=== PATIENT | female | born 1965 | race Caucasian/White ===

== ENCOUNTER 2016-06-07 10:30 | Emergency (ER) | payer OTHER ==
[~2016-06-07 10:30] MED LIST: BUPROPION HCL150 M2 PO; CLONAZEPAM1 MG PO; INDERAL EQUIVAL20 MG PO; KLOR-CON 1010 MEQ PO; MAG-OXIDE400 MG PO; MAXZIDE-25 PO; METFORMIN HCL500 MG PO; NEURONTIN300 MG PO; PHENERGAN EQUIV25 MG PO; PRILOSEC40 MG PO; RANITIDINE HCL150 MG PO; SEROQUEL25 MG PO; VENLAFAXINE H37.5 M1 PO; VITAMIN D-31000 UNIT PO; ZOFRAN ODT4 MG PO
--- NOTE | 2016-06-07 11:59 | DIAGNOSTIC IMAGING REPORT ---
PROCEDURE: CT HEAD WITHOUT CONTRAST INDICATION: Altered mental status, initial encounter TECHNIQUE: Noncontrast axial images with sagittal and coronal reformations. COMPARISON: None. FINDINGS: Sulci, ventricular system, and brain parenchyma are normal. No evidence of acute intracranial process. Visualized mastoids and sinuses are clear. IMPRESSION: 1. Negative non-enhanced head CT. 2. Findings discussed with Dr. Sebastian at 11:57 a.m., [facility] Time
--- NOTE | 2016-06-07 12:26 | DIAGNOSTIC IMAGING REPORT ---
PROCEDURE: XR CHEST 1 VIEW INDICATION: CVA, initial encounter TECHNIQUE: Portable AP view 11:45 a.m. COMPARISON: Chest x-ray 01/15/2015 FINDINGS: Lungs are clear. Heart and mediastinum are normal. Thorax is normal. IMPRESSION: 1. Negative chest.
--- NOTE | 2016-06-07 17:01 | DIAGNOSTIC IMAGING REPORT ---
PROCEDURE: MR BRAIN WITHOUT CONTRAST INDICATION: WEAKNESS, initial encounter TECHNIQUE: Sagittal T1 FLAIR; coronal T2; axial T1 FLAIR, T2-weighted FLAIR, T2 FSE, gradient echo T2, DWI and ADC sequences. COMPARISON: Head CT 06/07/2016 FINDINGS: Normal sulci and ventricular system. Minor white matter chronic ischemic changes. There is no evidence of an acute CVA, hemorrhage, mass or midline shift. Normal vascular flow voids. Normal orbits. Mastoids and sinuses are clear. IMPRESSION: 1. Minor white matter chronic ischemic changes 2. Results discussed with Dr. Sebastian
--- NOTE | 2016-06-07 17:12 | ED NURSING NOTES ---
Clinical Report - Nurses [facility] [address] [place] [address] 06/07/2016 10:32 Patient: STIVEN FOSS TRIAGE Triage time 1035. Acuity: LEVEL 3. Chief Complaint: HEADACHE and WEAKNESS (weakness in the arms, lt worse., chest discomfort, back of head hurts, "feel like hit in head"). Alert. No acute distress. SEPSIS SCREEN: Sepsis Screen: negative. Negative (no infection suspected/documented). TACHO COMA SCORE: [place] Coma Scale: 15- eyes open spontaneously (4); best verbal response- oriented x 4 (5); best motor response- obeys commands (6). --11:02 Fariha Solano R.N. 10:41 06/07/16. BP: 125/81. HR: 100. RR: 16. O2 saturation: 100%. Temp: 97.8 F. Pain level now: 7/10. Additional comments: "Everything feels wierd in my body. " "[place] like someone hit me in the head" . --11:02 Fariha Solano R.N. 10:41 06/07/16. BP: 125/81. HR: 100. RR: 16. O2 saturation: 100%. Temp: 97.8 F. Pain level now: 7/10. Additional comments: "Everything feels wierd in my body. " "[place] like someone hit me in the head" . --11:02 Fariha Solano R.N. Weight: 83.9 kg stated. Height/Length: 63 inches Per Patient. BMI: 32.8. --10:48 Fariha Solano R.N. Medications ClonazePAM Oral 2 mg, 4x a day. Gabapentin Oral (Tablet 600 mg) 1 tablet, 3x a day. Magnesium Oral 400 mg, daily. MetFORMIN HCl Oral (Tablet 500 mg) 1 tablet, 2x a day. Omeprazole Oral 40 mg, daily. Promethazine HCl Oral (Tablet 25 mg) 1 tablet, as needed. QUEtiapine Fumarate Oral (Tablet 200 mg) 1 tablet, daily. Ranitidine HCl Oral 150 mg, 2x a day. Vitamin D Oral. Zofran Oral (Tablet 4 mg) 1 tablet, 4x a day as needed. --10:59 Fariha Solano R.N. Hydrochlorothiazide Oral 25 mg, daily. --12:50 Fariha Solano R.N. Cytrazine ?, depression.. --12:51 Fariha Solano R.N. Medication/allergy information source: the patient and patient's family. --11:02 Fariha Solano R.N. Allergies PCN. --11:01 Fariha Solano R.N. History Arrived by private vehicle. Historian: patient. This started yesterday. She has had weakness. No fever, cough or difficulty breathing. Treatment BUTTON SEWER HAND: None. PAST MEDICAL HX: Immunizations: status is unknown. The patient has had a hysterectomy. SOCIAL HX: Smoker- current status unknown (vape). Alcohol use; consumes a large amount of liquor weekly. FALL RISK ASSESSMENT: Fall risk assessment completed. No fall risk identified. NUTRITIONAL RISK ASSESSMENT: The nutritional risk assessment revealed no deficiencies. FUNCTIONAL ASSESSMENT: Functional assessment: no impairments noted. LEARNING NEEDS ASSESSMENT: The learning needs assessment revealed no barriers. SKIN INTEGRITY ASSESSMENT: Skin integrity risk assessment completed. No skin integrity risk identified. --11:02 Fariha Solano R.N. ( Bedside glucose 91mg/dl). --11:05 Fariha Solano R.N. PROBLEMS: Diabetes Mellitus. Respiratory Failure. Drug Poisoning. Suicide Attempt. Mental Illness. --10:48 Fariha Solano R.N. Alcoholism. --12:48 Fariha Solano R.N. ADDITIONAL SURGERIES: Bilateral Tubal Ligation. Bladder Suspension. Gallbladder Surgery. Gastric Resection. Hysterectomy. Rt tube removed, tubal preg. . Sinus Surgery. --10:48 Fariha Solano R.N. Anus lift, due to prolapse. --12:48 Fariha Solano R.N. The following entry was struck by Fariha Solano R.N., 13:24 Reason - other <<STRICKEN ENTRY-- Tetralogy of Fallot Repair. --10:47 Fariha Solano R.N. --END STRIKE>>. Interventions ID band on patient. To room. --11:02 Fariha Solano R.N. PHYSICAL ASSESSMENT Ambulatory to room. Patient gowned. GENERAL / NEURO / PSYCH: Alert. Oriented X 4. Appears in no acute distress. Appears anxious. HEENT: Left-sided facial weakness. RESPIRATORY: Respirations not labored. CVS: Normal sinus rhythm noted. Capillary refill less than 2 seconds. GI / : Abdomen nontender. SKIN: Skin intact. Skin is warm and dry. Normal skin turgor. --11:03 Fariha Solano R.N. NURSING PROGRESS NOTES networking technician, pulse oximeter and NIBP monitor placed on patient; bar supervisor- Lead II; monitor alarms on. Patient gowned. Head of bed elevated. Two patient identifiers checked. Call light placed in reach. Side rails up x 2. Bed placed in lowest position. Brakes of bed on. Patient ready for evaluation. --11:04 Fariha Solano R.N. Spouse at bedside. --11:05 Fariha Solano R.N. 10:55. Finger stick glucose: 91 mg/dL. --11:05 Fariha Solano R.N. 10:55 06/07/2016 Site #1 started via IV in the right wrist with an 22g angiocath; one attempt. Blood drawn: rainbow set. Labeled in the presence of the patient and sent to the lab. Saline lock flushed with 10 mL saline. --11:06 Fariha Solano R.N. EKG time: (10:50 AM). EKG was performed by a tech and shown to the ED physician. --11:17 Oleksandr Savage ( Ambulated to and from the bathroom, voided w/o difficulty. Needed only standby assistance,). --11:19 Fariha Solano R.N. 13:43 06/07/16. BP: 92/65. HR: 81. RR: 14. O2 saturation: 98% on room air. 12:11 06/07/16. BP: 99/65. HR: 87. RR: 16. O2 saturation: 97% on room air. --13:44 Fariha Solano R.N. 14:46 06/07/2016 Tylenol (Acetaminophen) PO 975 mg given. Allergies verified and confirmed 5 rights. --14:46 Fariha Solano R.N. 15:07 06/07/16. BP: 107/62. HR: 72. RR: 16. O2 saturation: 96% on room air. --15:08 Fariha Solano R.N. ( Pt taken to MRI by the director intelligence analysis programs). --15:42 Temitope Loo Patient returned from MRI by stretcher with tech. --16:00 Fariha Solano R.N. Patient returned from MRI by wheelchair with tech. ([id number]). --16:34 Fariha Solano R.N. DISPOSITION / DISCHARGE No learning barriers present. Patient verbalized understanding. Written instructions provided in Hungarian. The patient was discharged home and accompanied by spouse. She left the Emergency Department ambulatory and via private vehicle. Spouse driving. Medication list reviewed and validated. --17:39 Fariha Solano R.N. 17:37 06/07/16. BP: 117/69. HR: 87. RR: 16. O2 saturation: 98% on room air. Temp: deferred. 15:07 06/07/16. BP: 107/62. HR: 72. RR: 16. O2 saturation: 96% on room air. 13:43 06/07/16. BP: 92/65. HR: 81. RR: 14. O2 saturation: 98% on room air. 12:11 06/07/16. BP: 99/65. HR: 87. RR: 16. O2 saturation: 97% on room air. 10:41 06/07/16. BP: 125/81. HR: 100. RR: 16. O2 saturation: 100%. Temp: 97.8 F. Pain level now: 12/01. Additional comments: "Everything feels wierd in my body. " "[place] like someone hit me in the head" . --17:39 Fariha Solano R.N. Locked/Released at 06/13/2016 15:10 by Blanca Jacobs R.N.
--- NOTE | 2016-06-07 17:12 | ED CLINICAL REPORT ---
Clinical Report - Physicians/Mid Levels [facility] [address] [place] [address] 06/07/2016 10:32 Patient: STIVEN FOSS Time Seen: 10:54. Arrived- By private vehicle. Historian- patient. HISTORY OF PRESENT ILLNESS Chief Complaint: WEAKNESS and PARESTHESIA. The patient has had new onset of weakness of the right leg (mild), left arm, left hand (moderate) and left leg (mild). She has had new onset of numbness of the left arm (mild) and left hand (mild). She has had new onset of tingling of the left hand. She has had mild difficulty with speech ("a little slower" - according to her partner). She has had visual disturbance with blurred vision of the right and left eye (mild). No impaired swallowing or recent fall. No difficulty walking. This started yesterday at about 4 PM and is still present. It was abrupt in onset and has been constant. At its maximum deficit described as mild. When seen in the E.D., deficit described as mild. The patient has had mild dizziness. Usually is alert and oriented X3 and has normal mobility. Similar symptoms previously: Once. Diagnosis: TIA. ( She was seen at [facility]). REVIEW OF SYSTEMS The patient has had a headache (since earlier this morning on the top of her head). No chills, fever, sweats, calf pain or chest pain. No cough, difficulty breathing, pedal edema, palpitations or abdominal pain. No constipation, diarrhea, nausea, vomiting or urinary problems. All systems otherwise negative, except as recorded above. PAST HISTORY ( PCP - ORA LUNA). Medications: Cytrazine ?, depression.. Hydrochlorothiazide Oral 25 mg, daily. ClonazePAM Oral 2 mg, 4x a day. Gabapentin Oral (Tablet 600 mg) 1 tablet, 3x a day. Magnesium Oral 400 mg, daily. MetFORMIN HCl Oral (Tablet 500 mg) 1 tablet, 2x a day. Omeprazole Oral 40 mg, daily. Promethazine HCl Oral (Tablet 25 mg) 1 tablet, as needed. QUEtiapine Fumarate Oral (Tablet 200 mg) 1 tablet, daily. Ranitidine HCl Oral 150 mg, 2x a day. Vitamin D Oral. Zofran Oral (Tablet 4 mg) 1 tablet, 4x a day as needed. Allergies: PCN. SOCIAL HISTORY Smoker- current status unknown (vape pen). Heavy alcohol use. FAMILY HISTORY Denies family medical history. ADDITIONAL NOTES The nursing notes have been reviewed. PHYSICAL EXAM Vital Signs: 06/07/2016 10:41 BP: 125/81. HR: 100. RR: 16. O2 saturation: 100%. Temp: 97.8 F. Pain level now: 12/01. Have been reviewed. Appearance: Alert. Head: Head atraumatic. Eyes: Pupils equal, round and reactive to light. No nystagmus. ENT: Pharynx normal. Neck: Normal inspection. Neck supple. No meningeal signs or carotid bruit. CVS: Normal heart rate and rhythm. Heart sounds normal. Respiratory: No respiratory distress. Breath sounds normal. Abdomen: Soft and nontender. No organomegaly. Back: Normal inspection. Skin: Skin warm and dry. Normal skin color. Normal skin turgor. Extremities: Extremities exhibit normal ROM. No lower extremity edema. Neuro: Alert. Oriented X 3. Cranial nerve deficit present, as evidenced by a left facial droop (very mild). No cerebellar findings. Reflexes normal. Left sided pronator drift (slight). LABS, X-RAYS, AND EKG EKG: Rate: 88. Decreased QRS voltage. EKG unchanged when compared with prior EKG. (no significant changes noted from 14 January 2015). The study has been independently viewed by me. CT Head: No acute changes. The study was interpreted contemporaneously by me and discussed with the radiologist. MRI Brain: Note- PROCEDURE: MR BRAIN WITHOUT CONTRAST INDICATION: WEAKNESS, initial encounter TECHNIQUE: Sagittal T1 FLAIR; coronal T2; axial T1 FLAIR, T2-weighted FLAIR, T2 FSE, gradient echo T2, DWI and ADC sequences. COMPARISON: Head CT 06/07/2016 FINDINGS: Normal sulci and ventricular system. Minor white matter chronic ischemic changes. There is no evidence of an acute CVA, hemorrhage, mass or midline shift. Normal vascular flow voids. Normal orbits. Mastoids and sinuses are clear. IMPRESSION: 1. Minor white matter chronic ischemic changes. Study type: The study was interpreted contemporaneously by me and discussed with the radiologist. Laboratory Tests: UA-Culture if indicated: (KAVIN: 06/07/2016 10:50) ( Mscvd 06/07/2016 11:52) Final results Test Result Flag Units (Reference) URINE COLOR YELLOW URINE APPEARANCE CLEAR URINE GLUCOSE NEGATIVE (NEGATIVE) URINE BILIRUBIN NEGATIVE (NEGATIVE) URINE KETONE NEGATIVE (NEGATIVE) URINE SPECIFIC GRAVITY <= 1.005 L (1.010-1.030) URINE PH 5.5 (5.0-8.0) URINE PROTEIN NEGATIVE (NEGATIVE) URINE UROBILINOGEN 0.2 EU/dL (0.2-1.0) URINE NITRITE NEGATIVE (NEGATIVE) URINE BLOOD NEGATIVE (NEGATIVE) URINE LEUK ESTERASE NEGATIVE (NEGATIVE) URINE RBC NONE SEEN rbc/hpf (0-1) URINE WBC NONE SEEN wbc/hpf (0-1) URINE EPITHELIAL CELLS 1-3 EPI/hpf (0-5) URINE BACTERIA NONE SEEN (NONE SEEN) URINE COMMENT CULT NOT INDICATED URINE CULTURES ARE SET-UP BASED ON THE FOLLOWING CRITERIA:POSITIVE NITRITEPOSITIVE LEUKOCYTE ESTERASEGREATER THAN 10 WHITE BLOOD CELLSMODERATE (2+) OR GREATER BACTERIA CBC w Diff: (KAVIN: 06/07/2016 10:50) ( Mscvd 06/07/2016 11:39) Final results Test Result Flag Units (Reference) WHITE BLOOD COUNT 6.2 K/uL (4.5-11.5) RED BLOOD COUNT 4.44 M/uL (4.00-5.20) HEMOGLOBIN 13.0 gm/dL (12.0-16.0) HEMATOCRIT 39.2 % (36.0-46.0) MEAN CELL VOLUME 88 fL (80-100) MEAN CORPUSCULAR HGB 29 pg (26-34) MEAN CORPUSCULAR HGB CONC 33 g/dL (31-37) RED CELL DISTRIBUTION WIDTH 12.5 % (11.6-14.8) PLATELET COUNT 204 K/uL (150-400) NEUTROPHIL % 39.3 L % (50-75) LYMPH % 48.5 H % (25-40) MONO % 10.0 % (3-14) EOSINOPHIL % 1.4 % (0-4) BASOPHIL % 0.8 % (0-2) PT with INR: (KAVIN: 06/07/2016 10:50) ( MsgRcvd 06/07/2016 11:50) Final results Test Result Flag Units (Reference) INR 0.9 (0.8-1.2) Low Intensity Therapy: INR 1.5-2.0 PT range 18.5-23.1Mod.Intensity Therapy: INR 2.0-3.0 PT range 23.1-31.5High Intensity Therapy: INR 2.5-3.5 PT range 27.4-35.5High Intensity Therapy 2: INR 3.0-4.0 PT range 31.5-39.3 APTT 30 SECONDS (24-34) CMP: (KAVIN: 06/07/2016 10:50) ( MsgRcvd 06/07/2016 11:55) Final results Test Result Flag Units (Reference) GLUCOSE 94 mg/dL (70-110) BUN 22 H mg/dL (7-18) CREATININE 1.1 mg/dL (0.6-1.3) Estimated GFR 55.88 mL/min Estimated GFR- >60 mL/min Note: Persistent reduction over 3 months in eGFR<60 mL/min/1.73 m2 defines CKD. Patients with eGFR values>=60 mL/min/1.73 m2 may also have CKD if evidence ofpersistent proteinuria. Additional information may be foundat www.kidney.org. SODIUM 141 mmol/L (136-145) POTASSIUM 3.7 mmol/L (3.5-5.1) CHLORIDE 103 mmol/L (98-107) CARBON DIOXIDE 30 mmol/L (21-32) CALCIUM 9.0 mg/dL (8.5-10.1) TOTAL PROTEIN 7.2 g/dL (6.4-8.2) ALBUMIN 3.4 g/dL (3.3-5.0) BILIRUBIN, TOTAL 0.5 mg/dL (0.0-1.0) ALKALINE PHOSPHATASE 124 H U/L (46-116) AST (SGOT) 25 U/L (15-37) ALT (SGPT) 34 U/L (12-78) LIPASE 185 U/L (73-393) AMYLASE 52 U/L (25-115) CPK 62 U/L (24-260) TROPONIN I <0.05 ng/mL (0.00-1.5) TROPONIN REFERENCE RANGE:<0.1 NEGATIVE0.1-1.5 INDETERMINANT>1.5 POSITIVE . PROGRESS AND PROCEDURES Course of Care: Patient is stable. Symptoms better. Vital signs have been reviewed. Physical exam findings are improved. Alert. No acute distress. Breath sounds normal. No respiratory distress. Normal heart rate and rhythm. Heart sounds normal. Abdomen soft and nontender. Skin warm and dry. No weakness. Consult obtained from neurology. Haider Luna - we reviewed the patient's history and exam findings as well as the results of her studies. I also reviewed the results of her prior records from [facility] with him. He says that in spite of the prior MRI and echocardiogram studies that an MRI should be obtained. he also says that at the time of discharge that the patient should have close follow-up with neurology. Case discussed. Phone consult only. Patient/family counseled. Old medical records reviewed. (from [facility] including prior MRI and echocardiogram). Disposition: Discharged. Condition: stable. CLINICAL IMPRESSION Migraine headache with hemiplegia. INSTRUCTIONS No driving or operating machinery while taking medication. Warnings: Further evaluation is necessary. GENERAL WARNINGS: Return or contact your physician immediately if your condition worsens or changes unexpectedly, if not improving as expected, or if other problems arise. Your Current Medications: CONTINUE TAKING THE FOLLOWING MEDICATIONS: ClonazePAM Oral : 2 mg 4x a day. Cytrazine ?, depression.*. Gabapentin Oral : Tablet 600 mg, 1 tablet 3x a day. Hydrochlorothiazide Oral : 25 mg daily. Magnesium Oral : 400 mg daily. MetFORMIN HCl Oral : Tablet 500 mg, 1 tablet 2x a day. Omeprazole Oral : 40 mg daily. Promethazine HCl Oral : Tablet 25 mg, 1 tablet, prn. QUEtiapine Fumarate Oral : Tablet 200 mg, 1 tablet daily. Ranitidine HCl Oral : 150 mg 2x a day. Vitamin D Oral. Zofran Oral : Tablet 4 mg, 1 tablet 4x a day, prn. Follow-up: Follow up with your doctor Dr. Luna in three days. Call for an appointment. Follow up with a neurologist- as recommended by your primary care physician. Understanding of the discharge instructions verbalized by patient and family. (Electronically signed by Basil Sebastian MD 06/07/2016 19:32)
--- NOTE | 2016-06-07 17:12 | ED NURSING NOTES ---
Clinical Report - Nurses [facility] [address] [place] [address] 06/07/2016 10:32 Patient: STIVEN FOSS TRIAGE Triage time 1035. Acuity: LEVEL 3. Chief Complaint: HEADACHE and WEAKNESS (weakness in the arms, lt worse., chest discomfort, back of head hurts, "feel like hit in head"). Alert. No acute distress. SEPSIS SCREEN: Sepsis Screen: negative. Negative (no infection suspected/documented). TACHO COMA SCORE: [place] Coma Scale: 15- eyes open spontaneously (4); best verbal response- oriented x 4 (5); best motor response- obeys commands (6). --11:02 Fariha Solano R.N. 10:41 06/07/16. BP: 125/81. HR: 100. RR: 16. O2 saturation: 100%. Temp: 97.8 F. Pain level now: 7/10. Additional comments: "Everything feels wierd in my body. " "[place] like someone hit me in the head" . --11:02 Fariha Solano R.N. 10:41 06/07/16. BP: 125/81. HR: 100. RR: 16. O2 saturation: 100%. Temp: 97.8 F. Pain level now: 7/10. Additional comments: "Everything feels wierd in my body. " "[place] like someone hit me in the head" . --11:02 Fariha Solano R.N. Weight: 83.9 kg stated. Height/Length: 63 inches Per Patient. BMI: 32.8. --10:48 Fariha Solano R.N. Medications ClonazePAM Oral 2 mg, 4x a day. Gabapentin Oral (Tablet 600 mg) 1 tablet, 3x a day. Magnesium Oral 400 mg, daily. MetFORMIN HCl Oral (Tablet 500 mg) 1 tablet, 2x a day. Omeprazole Oral 40 mg, daily. Promethazine HCl Oral (Tablet 25 mg) 1 tablet, as needed. QUEtiapine Fumarate Oral (Tablet 200 mg) 1 tablet, daily. Ranitidine HCl Oral 150 mg, 2x a day. Vitamin D Oral. Zofran Oral (Tablet 4 mg) 1 tablet, 4x a day as needed. --10:59 Fariha Solano R.N. Hydrochlorothiazide Oral 25 mg, daily. --12:50 Fariha Solano R.N. Cytrazine ?, depression.. --12:51 Fariha Solano R.N. Medication/allergy information source: the patient and patient's family. --11:02 Fariha Solano R.N. Allergies PCN. --11:01 Fariha Solano R.N. History Arrived by private vehicle. Historian: patient. This started yesterday. She has had weakness. No fever, cough or difficulty breathing. Treatment STAIN MAKER: None. PAST MEDICAL HX: Immunizations: status is unknown. The patient has had a hysterectomy. SOCIAL HX: Smoker- current status unknown (vape). Alcohol use; consumes a large amount of liquor weekly. FALL RISK ASSESSMENT: Fall risk assessment completed. No fall risk identified. NUTRITIONAL RISK ASSESSMENT: The nutritional risk assessment revealed no deficiencies. FUNCTIONAL ASSESSMENT: Functional assessment: no impairments noted. LEARNING NEEDS ASSESSMENT: The learning needs assessment revealed no barriers. SKIN INTEGRITY ASSESSMENT: Skin integrity risk assessment completed. No skin integrity risk identified. --11:02 Fariha Solano R.N. ( Bedside glucose 91mg/dl). --11:05 Fariha Solano R.N. PROBLEMS: Diabetes Mellitus. Respiratory Failure. Drug Poisoning. Suicide Attempt. Mental Illness. --10:48 Fariha Solano R.N. Alcoholism. --12:48 Fariha Solano R.N. ADDITIONAL SURGERIES: Bilateral Tubal Ligation. Bladder Suspension. Gallbladder Surgery. Gastric Resection. Hysterectomy. Rt tube removed, tubal preg. . Sinus Surgery. --10:48 Fariha Solano R.N. Anus lift, due to prolapse. --12:48 Fariha Solano R.N. The following entry was struck by Fariha Solano R.N., 13:24 Reason - other <<STRICKEN ENTRY-- Tetralogy of Fallot Repair. --10:47 Fariha Solano R.N. --END STRIKE>>. Interventions ID band on patient. To room. --11:02 Fariha Solano R.N. PHYSICAL ASSESSMENT Ambulatory to room. Patient gowned. GENERAL / NEURO / PSYCH: Alert. Oriented X 4. Appears in no acute distress. Appears anxious. HEENT: Left-sided facial weakness. RESPIRATORY: Respirations not labored. CVS: Normal sinus rhythm noted. Capillary refill less than 2 seconds. GI / : Abdomen nontender. SKIN: Skin intact. Skin is warm and dry. Normal skin turgor. --11:03 Fariha Solano R.N. NURSING PROGRESS NOTES front desk monitor, pulse oximeter and NIBP monitor placed on patient; threat monitoring analyst- Lead II; monitor alarms on. Patient gowned. Head of bed elevated. Two patient identifiers checked. Call light placed in reach. Side rails up x 2. Bed placed in lowest position. Brakes of bed on. Patient ready for evaluation. --11:04 Fariha Solano R.N. Spouse at bedside. --11:05 Fariha Solano R.N. 10:55. Finger stick glucose: 91 mg/dL. --11:05 Fariha Solano R.N. 10:55 06/07/2016 Site #1 started via IV in the right wrist with an 22g angiocath; one attempt. Blood drawn: rainbow set. Labeled in the presence of the patient and sent to the lab. Saline lock flushed with 10 mL saline. --11:06 Fariha Solano R.N. EKG time: (10:50 AM). EKG was performed by a tech and shown to the ED physician. --11:17 Oleksandr Savage ( Ambulated to and from the bathroom, voided w/o difficulty. Needed only standby assistance,). --11:19 Fariha Solano R.N. 13:43 06/07/16. BP: 92/65. HR: 81. RR: 14. O2 saturation: 98% on room air. 12:11 06/07/16. BP: 99/65. HR: 87. RR: 16. O2 saturation: 97% on room air. --13:44 Fariha Solano R.N. 14:46 06/07/2016 Tylenol (Acetaminophen) PO 975 mg given. Allergies verified and confirmed 5 rights. --14:46 Fariha Solano R.N. 15:07 06/07/16. BP: 107/62. HR: 72. RR: 16. O2 saturation: 96% on room air. --15:08 Fariha Solano R.N. ( Pt taken to MRI by the chief clinical officer). --15:42 Temitope Loo Patient returned from MRI by stretcher with tech. --16:00 Fariha Solano R.N. Patient returned from MRI by wheelchair with tech. ([id number]). --16:34 Fariha Solano R.N. DISPOSITION / DISCHARGE No learning barriers present. Patient verbalized understanding. Written instructions provided in [place]. The patient was discharged home and accompanied by spouse. She left the Emergency Department ambulatory and via private vehicle. Spouse driving. Medication list reviewed and validated. --17:39 Fariha Solano R.N. 17:37 06/07/16. BP: 117/69. HR: 87. RR: 16. O2 saturation: 98% on room air. Temp: deferred. 15:07 06/07/16. BP: 107/62. HR: 72. RR: 16. O2 saturation: 96% on room air. 13:43 06/07/16. BP: 92/65. HR: 81. RR: 14. O2 saturation: 98% on room air. 12:11 06/07/16. BP: 99/65. HR: 87. RR: 16. O2 saturation: 97% on room air. 10:41 06/07/16. BP: 125/81. HR: 100. RR: 16. O2 saturation: 100%. Temp: 97.8 F. Pain level now: 12/01. Additional comments: "Everything feels wierd in my body. " "[place] like someone hit me in the head" . --17:39 Fariha Solano R.N. Locked/Released at 06/13/2016 15:10 by Blanca Jacobs R.N.
--- NOTE | 2016-06-07 17:12 | ED ORDER SUMMARY ---
..... Patient: STIVEN FOSS OrderSheet [facility] VisitID: [id number] [place] [address] 50y, F Registration Date/Time: 06/07/2016 ORDER SHEET Weight: 83.9 kg (stated) Allergies: PCN GENERAL ORDERS: Chest 1V Urgent (11:06/07/2016 Shon HUDSON) (Ack 11:18 Aditya) (12:36 Linda) [employer]visor [employer] (Continuous) (11:06/07/2016 Shon HUDSON) (11:17 MWinterer R.N.) (Ack 11:18 Aditya) CT Head wo Cont Urgent (:06/07/2016 Shon HUDSON) (Ack 11:18 Aditya) (12:36 Linda) CBC w Diff Urgent (11:06/07/2016 Shon HUDSON) (Ack 11:18 Aditya) (14:45 SRoberts R.N.) CMP Urgent (11:06/07/2016 Shon HUDSON) (Ack 11:18 Aditya) (14:45 SRoberts R.N.) UA-Culture if indicated Urgent (:06/07/2016 Shon HUDSON) (Ack 11:18 Aditya) (14:45 SRoberts R.N.) Amylase Urgent (11:06/07/2016 Shon HUDSON) (Ack 11:18 Aditya) (14:45 SRoberts R.N.) Lipase Urgent (11:06/07/2016 Shon HUDSON) (Ack 11:18 Aditya) (14:45 SRoberts R.N.) CPK Urgent (:06/07/2016 Shon HUDSON) (Ack 11:18 Aditya) (14:45 SRoberts R.N.) Troponin-I Urgent (:06/07/2016 Shon HUSDON) (Ack 11:18 Aditya) (14:45 SRoberts R.N.) PT with INR Urgent (:06/07/2016 Shon HUDSON) (Ack 11:18 Aditya) (14:45 SRoberts R.N.) PTT Urgent (11:12 06/07/2016 Shon HUDSON) (Ack 11:18 Aditya) (14:45 SRxiomy R.N.) Oxygen (2 L/min) (NC) (11:12 06/07/2016 Shon HUDSON) (11:17 MWinterer R.N.) (Ack 11:18 Aditya) Pulse oximeter (11:12 06/07/2016 Shon HUDSON) (11:17 MWinterer R.N.) (Ack 11:18 Aditya) EKG - ER Stat (11:12 06/07/2016 Shon HUDSON) (11:16 LTapper) (Ack 11:18 Aditya) MRI Brain/IAC wo Cont (Not Applicable) Urgent (15:18 06/07/2016 Shon HUDSON) (Ack 15:24 Aditya) (16:50 Linda) MEDICATION ORDERS: Tylenol PO 1,000 mg (NOW) (14:45 06/07/2016 Gracie R.N. verbal order read back to Shon HUDSON) (14:46 Gracie R.N.) IV FLUIDS: IV Saline Lock (11:12 06/07/2016 Shon HUDSON) (11:18 Gracie R.N.) ORDER SHEET NOTES: [Electronically signed by Basil Sebastian MD (19:32 06/07/2016)] [Electronically signed by Blanca Jacobs R.N. (15:10 06/13/2016)] [Electronically locked/signed by Blanca Jacobs R.N. (15:10 06/13/2016)]
--- NOTE | 2016-06-07 17:12 | ED ORDER SUMMARY ---
..... Patient: STIVEN FOSS OrderSheet [facility] VisitID: [id number] [place] [address] 50y, F Registration Date/Time: 06/07/2016 ORDER SHEET Weight: 83.9 kg (stated) Allergies: PCN GENERAL ORDERS: Chest 1V Urgent (11:06/07/2016 Shon HUDSON) (Ack 11:18 Aditya) (12:36 Linda) Elementary Instructional Coach (Continuous) (11:06/07/2016 Shon HUDSON) (11:17 MWinterer R.N.) (Ack 11:18 Aditya) CT Head wo Cont Urgent (:06/07/2016 Shon HUDSON) (Ack 11:18 Aditya) (12:36 Linda) CBC w Diff Urgent (11:06/07/2016 Shon HUDSON) (Ack 11:18 Aditya) (14:45 SRoberts R.N.) CMP Urgent (11:06/07/2016 Shon HUDSON) (Ack 11:18 Aditya) (14:45 SRoberts R.N.) UA-Culture if indicated Urgent (:06/07/2016 Shon HUDSON) (Ack 11:18 Aditya) (14:45 SRoberts R.N.) Amylase Urgent (11:06/07/2016 Shon HUDSON) (Ack 11:18 Aditya) (14:45 SRoberts R.N.) Lipase Urgent (11:06/07/2016 Shon HUDSON) (Ack 11:18 Aditya) (14:45 SRoberts R.N.) CPK Urgent (:06/07/2016 Shon HUDSON) (Ack 11:18 Aditya) (14:45 SRoberts R.N.) Troponin-I Urgent (:06/07/2016 Shon HUDSON) (Ack 11:18 Aditya) (14:45 SRoberts R.N.) PT with INR Urgent (:06/07/2016 Shon HUDSON) (Ack 11:18 Aditya) (14:45 SRoberts R.N.) PTT Urgent (11:12 06/07/2016 Shon HUDSON) (Ack 11:18 Aditya) (14:45 SRxiomy R.N.) Oxygen (2 L/min) (NC) (11:12 06/07/2016 Shon HUDSON) (11:17 MWinterer R.N.) (Ack 11:18 Aditya) Pulse oximeter (11:12 06/07/2016 Shon HUDSON) (11:17 MWinterer R.N.) (Ack 11:18 Aditya) EKG - ER Stat (11:12 06/07/2016 Shon HUDSON) (11:16 LTapper) (Ack 11:18 Aditya) MRI Brain/IAC wo Cont (Not Applicable) Urgent (15:18 06/07/2016 Shon HUDSON) (Ack 15:24 Aditya) (16:50 Linda) MEDICATION ORDERS: Tylenol PO 1,000 mg (NOW) (14:45 06/07/2016 Gracie R.N. verbal order read back to Shon HUDSON) (14:46 Gracie R.N.) IV FLUIDS: IV Saline Lock (11:12 06/07/2016 Shon HUDSON) (11:18 Gracie R.N.) ORDER SHEET NOTES: [Electronically signed by Basil Sebastian MD (19:32 06/07/2016)] [Electronically signed by Blanca Jacobs R.N. (15:10 06/13/2016)] [Electronically locked/signed by Blanca Jacobs R.N. (15:10 06/13/2016)]
--- NOTE | 2016-06-13 15:10 | ED MED RECONCILIATION SUMMARY ---
Patient: STIVEN FOSS Medication Reconciliation Report [facility] VisitID: [id number] [address] [place] [address] 50y, F Registration Date/Time: 06/07/2016 Weight: 83.9 kg Height/Length: 63 in. BMI: 32.8 ALLERGIES: PCN The patient's Home Medications are listed below: CONTINUE TAKING THE FOLLOWING MEDICATIONS: ClonazePAM Oral 2 mg, 4x a day Cytrazine ?, depression. Gabapentin Oral (600 mg) 1 tablet, 3x a day Hydrochlorothiazide Oral 25 mg, daily Magnesium Oral 400 mg, daily MetFORMIN HCl Oral (500 mg) 1 tablet, 2x a day Omeprazole Oral 40 mg, daily Promethazine HCl Oral (25 mg) 1 tablet QUEtiapine Fumarate Oral (200 mg) 1 tablet, daily Ranitidine HCl Oral 150 mg, 2x a day Vitamin D Oral Zofran Oral (4 mg) 1 tablet, 4x a day The source(s) of the original Home Medication information: patient's family member patient The following Medications were given to the patient in the Emergency Department: Tylenol [PO] PO 975 mg, administered: 06/07/2016 2:46:00 PM The following Medications were prescribed to the patient: None.
--- NOTE | 2016-06-13 15:10 | ED MAR SUMMARY ---
..... Medication Administration Record [facility] [address] [place] [address] Patient: STIVEN FOSS Visit ID: [id number] 50y, F Weight: 83.9 kg Height/Length: 63 in BMI: 32.8 ALLERGIES: PCN Given 14:46 06/07/2016 Fariha Solano R.N. Medication Administered: TYLENOL [PO] (ACETAMINOPHEN), Dose: 975 mg PO. Medication Ordered: Tylenol PO 1,000 mg (NOW).
--- NOTE | 2016-06-13 15:10 | ED MAR SUMMARY ---
..... Medication Administration Record [facility] [address] [place] [address] Patient: STIVEN FOSS Visit ID: [id number] 50y, F Weight: 83.9 kg Height/Length: 63 in BMI: 32.8 ALLERGIES: PCN Given 14:46 06/07/2016 Fariha Solano R.N. Medication Administered: TYLENOL [PO] (ACETAMINOPHEN), Dose: 975 mg PO. Medication Ordered: Tylenol PO 1,000 mg (NOW).
--- NOTE | 2016-06-13 15:10 | ED DISCHARGE INSTRUCTIONS ---
Patient: STIVEN FOSS General Instructions [facility] VisitID: [id number] [place] [address] 50y, F Registration Date/Time: 06/07/2016 Migraine headache with hemiplegia. INSTRUCTIONS No driving or operating machinery while taking medication. Warnings: Further evaluation is necessary. GENERAL WARNINGS: Return or contact your physician immediately if your condition worsens or changes unexpectedly, if not improving as expected, or if other problems arise. Your Current Medications: CONTINUE TAKING THE FOLLOWING MEDICATIONS: ClonazePAM Oral : 2 mg 4x a day. Cytrazine ?, depression.*. Gabapentin Oral : Tablet 600 mg, 1 tablet 3x a day. Hydrochlorothiazide Oral : 25 mg daily. Magnesium Oral : 400 mg daily. MetFORMIN HCl Oral : Tablet 500 mg, 1 tablet 2x a day. Omeprazole Oral : 40 mg daily. Promethazine HCl Oral : Tablet 25 mg, 1 tablet, prn. QUEtiapine Fumarate Oral : Tablet 200 mg, 1 tablet daily. Ranitidine HCl Oral : 150 mg 2x a day. Vitamin D Oral. Zofran Oral : Tablet 4 mg, 1 tablet 4x a day, prn. Follow-up: Follow up with your doctor Dr. Arora in three days. Call for an appointment. Follow up with a neurologist- as recommended by your primary care physician. Understanding of the discharge instructions verbalized by patient and family. ADDITIONAL INFORMATION Migraine Headache Migraine headaches are related to changes in blood flow to the brain. This causes throbbing or constant pain on one or both sides of the head. The pain may last from a few hours to several days. There is usually nausea, vomiting, sensitivity to light and sound, and blurred vision. A migraine attack may be triggered by emotional stress, hormone changes during the menstrual cycle, oral contraceptives, alcohol use, certain foods containing tyramine, eye strain, weather changes, missing meals, or too little or too much sleep. Home Care For This Headache: 1) If you were given pain medicine for this headache, do not drive yourself home . Arrange for a ride, instead. When you get home, try to sleep. You should feel much better when you wake up. 2) Migraine headaches may improve with an ice pack on the forehead or at the base of the skull. Heat to the back of your neck may relieve any neck spasm. 3) Drink only clear liquids or eat a very light diet to avoid nausea/vomiting until symptoms improve. Preventing Future Headaches: 1) Pay attention to those factors that seem to trigger your headache. Try to avoid them when you can. If you have frequent headaches, it is useful to keep a diary of what you were doing, feeling or eating in the hours before each attack. Show this to your doctor to help find the cause of your headaches. a) If you feel that stress is a factor in your headaches, look at the sources of stress in your life. Find ways to release the build-up of those stresses by using regular exercise, relaxation methods (yoga, meditation), bio-feedback or simply taking time-out for yourself. For more information about this, consult your doctor or go to a local bookstore and review books and tapes on this subject. b) Tyramine is a substance present in the following foods : chocolate, yogurt, all cheeses except cottage cheese and cream cheese. smoked or pickled fish and meat (including vaughn, caviar, bologna, pepperoni, salami), liver, avocados, bananas, figs, raisins, and red wine. Be aware that these foods may trigger a migraine in some persons. Try taking these foods out of your diet for 1-2 months to see if this reduces headache frequency. Treating Future Attacks: 1) At the first sign of a headache, take time out if possible. Find a quiet, dark, comfortable place to sit or lie down. Let yourself relax or sleep. 2) An ice pack on the forehead or area of greatest pain may help. If you are having muscle spasm and tightness of the neck, a heating pad and massage to this area may be helpful. 3) If you have been prescribed a medicine to stop a migraine headache, use this at the very first warning sign of the headache (aura or initial pain) for best results. Follow Up with your doctor if the headache is not better within the next 24 hours. If you have frequent headaches you should discuss a treatment plan with your primary care doctor. Ask if you can have medicine to take at home the next time you get a bad headache. Poorly controlled chronic headaches may require a referral to a neurologist (headache specialist). Get Prompt Medical Attention if any of the following occur: Your head pain gets worse, or does not improve within 24 hours Repeated vomiting (cant keep liquids down) Sinus or ear or throat pain (not already reported) Fever of 100.4 F (38 C) or higher, or as directed by your healthcare provider Stiff neck Extreme drowsiness, confusion or fainting Dizziness, vertigo (dizziness with spinning sensation) Weakness of an arm or leg or one side of the face Difficulty with speech or vision You have been given the following additional information: Headache, Migraine (Classical) No driving or operating machinery while taking medication. (Electronically signed by Basil Sebastian MD 06/07/2016 19:32)
--- NOTE | 2016-06-13 15:10 | ED MED RECONCILIATION SUMMARY ---
Patient: STIVEN FOSS Medication Reconciliation Report [facility] VisitID: [id number] [address] [place] [address] 50y, F Registration Date/Time: 06/07/2016 Weight: 83.9 kg Height/Length: 63 in. BMI: 32.8 ALLERGIES: PCN The patient's Home Medications are listed below: CONTINUE TAKING THE FOLLOWING MEDICATIONS: ClonazePAM Oral 2 mg, 4x a day Cytrazine ?, depression. Gabapentin Oral (600 mg) 1 tablet, 3x a day Hydrochlorothiazide Oral 25 mg, daily Magnesium Oral 400 mg, daily MetFORMIN HCl Oral (500 mg) 1 tablet, 2x a day Omeprazole Oral 40 mg, daily Promethazine HCl Oral (25 mg) 1 tablet QUEtiapine Fumarate Oral (200 mg) 1 tablet, daily Ranitidine HCl Oral 150 mg, 2x a day Vitamin D Oral Zofran Oral (4 mg) 1 tablet, 4x a day The source(s) of the original Home Medication information: patient's family member patient The following Medications were given to the patient in the Emergency Department: Tylenol [PO] PO 975 mg, administered: 06/07/2016 2:46:00 PM The following Medications were prescribed to the patient: None.
== END 2016-06-07 17:25 | disposition home or self-care (01) ==
LOC: ED SRH 10:30 → EDBD 10:33 → ED SRH 17:25
DX: G43.409 Hemiplegic migraine, not intractable, without status migrainosus (principal); Z79.84 Long term (current) use of oral hypoglycemic drugs; Z88.0 Allergy status to penicillin; F17.290 Nicotine dependence, other tobacco product, uncomplicated
CPT/HCPCS: 90004; 90100; 90616; 92235; 92530; 92610; 94001; 94060; 95059